=== PATIENT | female | born 1985 | race Caucasian/White ===

== ENCOUNTER → 2023-07-12 | Outpatient (CLI) | payer OTHER ==
[~2023-07-12] MED LIST: KEFL500C17 PO; MIRE1IUD IU; WELLTAB40 PO
== END ==
LOC: M WHC 09:28
PROVIDERS: ATTEND Nurse Practitioner Family
DX: N64.4 Mastodynia (principal); N64.59 Other signs and symptoms in breast

== ENCOUNTER → 2023-08-16 | Outpatient (CLI) | payer OTHER ==
[2023-08-16 15:13] LABS: ALBUMIN 4.1 G/DL (3.2-5.2); ALKALINE PHOSPHATASE 59 U/L (46-116); ALT/SGPT 21 U/L (7.0-40); AST/SGOT 13 U/L (<34); BILIRUBIN,TOTAL 0.8 MG/DL (0.3-1.2); BLOOD UREA NITROGEN 15 MG/DL (9-23); CALCIUM LEVEL 9.2 MG/DL (8.5-10.1); CARBON DIOXIDE LEVEL 27 MMOL/L (20-31); CHLORIDE LEVEL 105 MMOL/L (98-107); CREATININE FOR GFR 0.76 MG/DL (0.55-1.30); GLOMERULAR FILTRATION RATE > 60.0 (>60); GLUCOSE, FASTING 88 MG/DL (60-100); POTASSIUM SERUM 4.2 MMOL/L (3.5-5.1); SODIUM LEVEL 138 MMOL/L (136-145); TOTAL PROTEIN 6.9 G/DL (5.7-8.2)
== END ==
LOC: M PLALAB 10:34
PROVIDERS: ATTEND Nurse Practitioner Family
DX: L68.0 Hirsutism (principal)

== ENCOUNTER → 2023-11-20 | Outpatient (CLI) | payer OTHER ==
[2023-11-20 10:29] LABS: ALBUMIN 3.9 G/DL (3.2-5.2); ALKALINE PHOSPHATASE 55 U/L (46-116); ALT/SGPT 22 U/L (7.0-40); AST/SGOT < 8 U/L (<34); BILIRUBIN,TOTAL 0.7 MG/DL (0.3-1.2); BLOOD UREA NITROGEN 10 MG/DL (9-23); CARBON DIOXIDE LEVEL 27 MMOL/L (20-31); CHLORIDE LEVEL 106 MMOL/L (98-107); CREATININE FOR GFR 0.75 MG/DL (0.55-1.30); GLOMERULAR FILTRATION RATE > 60.0 (>60); GLUCOSE, FASTING 72 MG/DL (60-100); POTASSIUM SERUM 4.2 MMOL/L (3.5-5.1); SODIUM LEVEL 137 MMOL/L (136-145)
[2023-11-20 10:35] LABS: FOLLICLE STIMULATING HORMONE 3.3 mIU/ML; PROLACTIN 5.32 NG/ML
[2023-11-20 10:36] LABS: ESTRADIOL 70.5 PG/ML; LUTEINIZING HORMONE 2.5 mIU/ML
[2023-11-20 10:38] LABS: PROGESTERONE 10.82 NG/ML
[2023-11-21 14:10] LABS: TESTOSTERONE FREE (DIRECT) 2.2 pg/mL (0.0-4.2)
== END ==
LOC: M PLALAB 08:40
PROVIDERS: ATTEND Nurse Practitioner Family
DX: L68.0 Hirsutism (principal); R68.82 Decreased libido

== ENCOUNTER 2024-03-19 11:33 | Emergency (ER) | payer OTHER ==
[~2024-03-19] VITALS: Ht 170.2 cm; Wt 108.3 kg
[2024-03-19] MEDS: diazePAM 5MG TABLET PO ONE (12:58)
[2024-03-19] MEDS: KETOROLAC 30 MG/ML 1ML VIAL IM ONE (12:59)
[2024-03-19 14:47] VITALS: BP 121/78; TEMP 97.3; O2SAT 98
[2024-03-19] MEDS ORDERED: KETO10TAB PO (15:13)
[2024-03-19] MEDS ORDERED: MEDR4TAB PO (15:13)
[2024-03-19] MEDS ORDERED: METH-1164 PO (15:13)
== END 2024-03-19 15:24 | disposition home or self-care (01) ==
LOC: M ED 11:33
DX: M51.26 Other intervertebral disc displacement, lumbar region (principal); E28.2 Polycystic ovarian syndrome; F41.9 Anxiety disorder, unspecified; F32.A Depression, unspecified; F17.210 Nicotine dependence, cigarettes, uncomplicated; Z91.030 Bee allergy status; Z79.899 Other long term (current) drug therapy
CPT/HCPCS: 72148; 96372; 99283; J1100; J1885

== ENCOUNTER → 2024-03-20 | Outpatient (CLI) | payer OTHER ==
[~2024-03-20] MED LIST changes: +KETO10TAB PO; +MEDR4TAB PO; +METH-1164 PO
[2024-03-20 11:05] LABS: ALBUMIN 3.8 G/DL (3.2-5.2); ALKALINE PHOSPHATASE 68 U/L (46-116); ALT/SGPT 23 U/L (7.0-40); AST/SGOT < 8 U/L (<34); BILIRUBIN,TOTAL 0.7 MG/DL (0.3-1.2); BLOOD UREA NITROGEN 12 MG/DL (9-23); CALCIUM LEVEL 9.3 MG/DL (8.5-10.1); CARBON DIOXIDE LEVEL 25 MMOL/L (20-31); CHLORIDE LEVEL 108 MMOL/L (98-107); CREATININE FOR GFR 0.72 MG/DL (0.55-1.30); GLOMERULAR FILTRATION RATE > 60.0 (>60); GLUCOSE, FASTING 112 MG/DL (60-100); POTASSIUM SERUM 4.6 MMOL/L (3.5-5.1); SODIUM LEVEL 138 MMOL/L (136-145); TOTAL PROTEIN 6.9 G/DL (5.7-8.2)
== END ==
LOC: M PLALAB 07:56
PROVIDERS: ATTEND Nurse Practitioner Family
DX: L68.0 Hirsutism (principal)

== ENCOUNTER → 2024-08-07 | Outpatient (CLI) | payer OTHER | LOC: M WHC 10:09 | PROVIDERS: ATTEND Nurse Practitioner Family | DX: N63.20 Unspecified lump in the left breast, unspecified quadrant (principal) ==

== ENCOUNTER → 2024-09-23 | Outpatient (CLI) | payer OTHER ==
[2024-09-23 12:33] LABS: FREE T4 0.99 NG/DL (0.89-1.76); PROLACTIN 7.46 NG/ML; THYROID STIMULATING HORMONE 1.264 uIU/ML (0.55-4.78)
== END ==
LOC: M PLALAB 07:52
PROVIDERS: ATTEND Nurse Practitioner Family
DX: O92.6 Galactorrhea (principal)

== ENCOUNTER 2024-12-25 16:42 | Emergency (ER) | payer OTHER ==
[~2024-12-25] VITALS: Ht 170.2 cm; Wt 122.3 kg
[2024-12-25 16:43] VITALS: TEMP 98.1
[2024-12-25] MEDS ORDERED: ESCITALOPRAM (16:53)
[2024-12-25] MEDS ORDERED: SPIR100T3 (16:53)
[2024-12-25 17:39] LABS: BASO % 0.4 % (0.0-1.0); EOS # 0.2 10^3/uL (0.0-0.5); EOS % 2.9 % (0.0-3.0); HEMATOCRIT 39.3 % (36.0-47.0); HEMOGLOBIN 13.3 g/dl (12.0-15.5); LYMPH # 2.7 10^3/uL (1.5-5.0); LYMPH % 34.4 % (24.0-44.0); MEAN CORPUSCULAR HEMOGLOBIN 30.4 pg (27.0-33.0); MEAN CORPUSCULAR HGB CONC 33.8 g/dl (32.0-36.5); MEAN CORPUSCULAR VOLUME 89.7 fl (80.0-96.0); MONO # 0.6 10^3/uL (0.0-0.8); MONO % 7.4 % (2.0-8.0); NEUTROPHILS # 4.2 10^3/uL (1.5-8.5); NEUTROPHILS % 54.5 % (36.0-66.0); PLATELET COUNT, AUTOMATED 244 10^3/uL (150-450); RED BLOOD COUNT 4.38 10^6/uL (4.00-5.40); WHITE BLOOD COUNT 7.7 10^3/uL (4.0-10.0)
[2024-12-25 18:04] LABS: ALBUMIN 3.8 G/DL (3.2-5.2); ALKALINE PHOSPHATASE 59 U/L (35-104); ALT/SGPT 33 U/L (7.0-40); AST/SGOT 18 U/L (<34); BILIRUBIN,TOTAL 0.5 MG/DL (0.3-1.2); BLOOD UREA NITROGEN 11 MG/DL (9-23); CARBON DIOXIDE LEVEL 29 MMOL/L (20-31); CHLORIDE LEVEL 103 MMOL/L (98-107); CREATININE FOR GFR 0.74 MG/DL (0.55-1.30); GLOMERULAR FILTRATION RATE > 60.0 (>60); GLUCOSE, FASTING 98 MG/DL (60-100); POTASSIUM SERUM 4.1 MMOL/L (3.5-5.1); SODIUM LEVEL 139 MMOL/L (136-145); TOTAL PROTEIN 6.9 G/DL (5.7-8.2)
[2024-12-25] MEDS ORDERED: ISOVUE-370 76% 100ML VIAL As Ordered ONE (20:56)
[2024-12-25] MEDS: MECLIZINE 25 MG TABLET PO ONE (21:08)
[2024-12-25 21:58] VITALS: BP 105/60
[2024-12-25] MEDS ORDERED: MECL-209 PO (22:26)
[2024-12-25 22:43] VITALS: O2SAT 98
== END 2024-12-25 22:55 | disposition home or self-care (01) ==
LOC: M ED 16:42
DX: H81.4 Vertigo of central origin (principal); R94.31 Abnormal electrocardiogram [ECG] [EKG]; E28.2 Polycystic ovarian syndrome; F32.A Depression, unspecified; F17.210 Nicotine dependence, cigarettes, uncomplicated; F10.10 Alcohol abuse, uncomplicated; Z91.030 Bee allergy status; Z79.899 Other long term (current) drug therapy
CPT/HCPCS: 36415; 70450; 70496; 70498; 71045; 80053; 85025; 87486; 87581; 87633; 87798; 93005; 99284; Q9967

== ENCOUNTER → 2025-02-10 | Outpatient (CLI) | payer OTHER ==
[~2025-02-10] MED LIST changes: +ESCITALOPRAM; +MECL-209 PO; +SPIR100T3
== END ==
LOC: M WHC 06:39
PROVIDERS: ATTEND Nurse Practitioner Family
DX: R19.00 Intra-abdominal and pelvic swelling, mass and lump, unspecified site (principal)

== ENCOUNTER → 2025-05-28 | Outpatient (REF) | payer MEDICAID, OTHER | LOC: M SFHCWAGY 09:33 | PROVIDERS: ATTEND Nurse Practitioner Family | DX: Z12.4 Encounter for screening for malignant neoplasm of cervix (principal); Z11.51 Encounter for screening for human papillomavirus (HPV) ==

== ENCOUNTER → 2025-09-23 | Outpatient (CLI) | payer OTHER ==
[2025-09-23 13:32] LABS: ALT/SGPT 21.0 U/L (7.0-40); AST/SGOT 16.0 U/L (<34)
[2025-09-23 13:35] LABS: FREE T4 1.04 NG/DL (0.89-1.76)
== END ==
LOC: M PLALAB 09:32
PROVIDERS: ATTEND Nurse Practitioner Family
DX: R23.2 Flushing (principal)